=== PATIENT | male | born 1970 | race African-American/Black ===

== ENCOUNTER 2022-01-09 23:30 | Emergency (ER) | payer SELFPAY | END 2022-01-10 01:45 | disposition home or self-care (01) | LOC: EEVIPCON 23:30 → ERS 23:30 | DX: S83.92XA Sprain of unspecified site of left knee, initial encounter (principal); I10 Essential (primary) hypertension; W19.XXXA Unspecified fall, initial encounter ==

== ENCOUNTER 2022-05-13 20:30 | Emergency (ER) | payer BC, SELFPAY ==
[2022-05-13] MEDS ORDERED: Morphine 4 MG/ML VIAL ONE (21:11)
[2022-05-13] MEDS ORDERED: Ketorolac Tromethamine 30 MG/ML VIAL ONE (21:11)
[2022-05-13] MEDS ORDERED: Ondansetron PF 4 MG/2 ML Vial ONE ×2 (21:11→22:37)
[2022-05-13 22:17] LABS: #Basophils 0.1 thou/uL (0.0-0.2); #Eosinphils 0.1 thou/uL (0.0-0.7); #Lymphocytes 1.5 thou/uL (1.20-3.40); #Monocytes 0.7 thou/uL (0.11-0.59); #Neutrophils 7.3 thou/uL (1.40-6.50); %Basophils 0.5 % (0.0-1.0); %Eosinophils 0.6 % (0.0-10.0); %Lymphocytes 15.3 % (21.0-51.0); %Monocytes 7.6 % (0.0-10.0); Hemoglobin 15.9 g/dL (14.0-18.0); Mean Corpuscular HGB CONC 32.8 g/dL (32.0-36.0); Mean Corpuscular Hemoglobin 30.4 pg (27.0-31.0); Mean Corpuscular Volume 92.6 fL (78.0-98.0); Mean Platelet Volume 9.1 fL (7.4-10.4); Platelet Count 216 thou/uL (130-400); RBC Distribution Width 11.5 % (11.5-14.5); Red Blood Cell (RBC) Count 5.24 mill/uL (4.70-6.10); White Blood Cell (WBC) Count 9.7 thou/uL (4.8-10.8)
[2022-05-13 22:40] LABS: ALT (SGPT) 20 U/L (8-55); AST (SGOT) 21 U/L (5-34); Albumin 4.4 g/dL (3.5-5.0); Alkaline Phosphatase 129 U/L (40-110); Anion Gap 16 mmol/L (10-20); BUN (Urea Nitrogen) 11 mg/dL (8.4-25.7); Calc. Creatinine Clearance 0 mL/min (70-130); Calcium 9.8 mg/dL (7.8-10.44); Carbon Dioxide 21 mmol/L (22-29); Chloride 104 mmol/L (98-107); Estimated GFR 80; Glucose 111 mg/dL (70-105); Magnesium 1.9 mg/dL (1.6-2.6); Potassium 4.1 mmol/L (3.5-5.1); Protein, Total 8.4 g/dL (6.0-8.3); Sodium 137 mmol/L (136-145)
[2022-05-13] MEDS ORDERED: Piperacillin/Tazobactam 4.5 GM in Sodium Chloride 0.9% 100 ML IVPB SCH (23:15)
[2022-05-13] MEDS ORDERED: Amoxicillin/Potassium Clav 875 MG TAB ONE (23:47)
== END 2022-05-14 00:02 | disposition home or self-care (01) ==
LOC: ERS 20:30
DX: K57.32 Diverticulitis of large intestine without perforation or abscess without bleeding (principal)
CPT/HCPCS: 74176; 80053; 83735; 85025; 96361; 96374; 96375; J1885; J2270; J2405; J2543; J3490

== ENCOUNTER 2022-07-10 17:45 | Emergency (ER) | payer BC | END 2022-07-10 18:33 | disposition home or self-care (01) | LOC: ERS 17:45 | DX: K57.92 Diverticulitis of intestine, part unspecified, without perforation or abscess without bleeding (principal); I10 Essential (primary) hypertension; Z79.899 Other long term (current) drug therapy | CPT/HCPCS: 99283 ==

== ENCOUNTER 2022-10-11 06:43 | Emergency (ER) | payer BC ==
[2022-10-11 07:24] LABS: Hemoglobin 15.5 g/dL (14.0-18.0); Mean Corpuscular HGB CONC 31.6 g/dL (32.0-36.0); Mean Corpuscular Hemoglobin 29.8 pg (27.0-31.0); Mean Corpuscular Volume 94.3 fl (78.0-98.0); Mean Platelet Volume 8.9 fL (7.4-10.4); Platelet Count 212 10x3/uL (130-400); RBC Distribution Width 11.6 % (11.5-14.5); Red Blood Cell (RBC) Count 5.19 mill/uL (4.70-6.10); White Blood Cell (WBC) Count 4.5 10x3/uL (4.8-10.8)
[2022-10-11 07:44] LABS: ALT (SGPT) 21 U/L (8-55); AST (SGOT) 19 U/L (5-34); Albumin 4.4 g/dL (3.5-5.0); Alkaline Phosphatase 112 U/L (40-110); Anion Gap 12 mmol/L (10-20); BUN (Urea Nitrogen) 12 mg/dL (8.4-25.7); Calc. Creatinine Clearance 0 mL/min (70-130); Calcium 9.2 mg/dL (7.8-10.44); Carbon Dioxide 26 mmol/L (22-29); Chloride 102 mmol/L (98-107); Estimated GFR 64; Globulin 3.5 g/dL (2.4-3.5); Glucose 236 mg/dL (70-105); Potassium 3.6 mmol/L (3.5-5.1); Protein, Total 7.9 g/dL (6.0-8.3); Sodium 136 mmol/L (136-145)
[2022-10-11 08:05] LABS: Band 6 % (5-11); Eosinophils 2 % (0-10); Lymphocytes 23 % (21-51); MDiff Complete? YES; Monocytes 2 % (0-10); Neutrophil 66 % (42-75); Platelet Morphology Comment Appears Adequate; RBC Morphology Normal; Reactive Lymphocytes 1 % (0-10)
[2022-10-11 09:05] LABS: Bilirubin Negative (Negative); Blood, Urine Negative (Negative); Clarity Clear (Clear); Glucose, Urine (Dipstick) Normal (Negative); Ketone, Urine Negative (Negative); Leukocyte Negative Leu/uL (Negative); Nitrite Negative (Negative); Protein, Urine (Dipstick) 10 mg/dL (Neg-Trace); Specific Gravity, Urine 1.026 (1.002-1.036); Urobilinogen 3 mg/dL (Less than 2)
== END 2022-10-11 11:51 | disposition home or self-care (01) ==
LOC: ERS 06:43
DX: R10.814 Left lower quadrant abdominal tenderness (principal); R73.9 Hyperglycemia, unspecified; I10 Essential (primary) hypertension
CPT/HCPCS: 36415; 74176; 80053; 81003; 85025

== ENCOUNTER 2023-07-12 07:08 | Emergency (ER) | payer BC | END 2023-07-12 07:57 | disposition home or self-care (01) | LOC: ERS 07:08 | DX: S46.012A Strain of muscle(s) and tendon(s) of the rotator cuff of left shoulder, initial encounter (principal); S16.1XXA Strain of muscle, fascia and tendon at neck level, initial encounter; I10 Essential (primary) hypertension | CPT/HCPCS: 99283 ==

== ENCOUNTER 2023-08-19 15:43 | Emergency (ER) | payer BC ==
[2023-08-19 16:36] LABS: %Lymphocytes 22.8 % (21.0-51.0); %Neutrophils 64.3 % (42.0-75.0); Hematocrit 44.7 % (42.0-52.0); Hemoglobin 14.6 g/dL (14.0-18.0); Mean Corpuscular HGB CONC 32.7 g/dL (32.0-36.0); Mean Corpuscular Hemoglobin 29.7 pg (27.0-31.0); Mean Platelet Volume 10.7 fL (7.4-10.4); Platelet Count 257 10x3/uL (130-400); Red Blood Cell (RBC) Count 4.91 mill/uL (4.70-6.10); White Blood Cell (WBC) Count 7.2 10x3/uL (4.8-10.8)
[2023-08-19 16:37] LABS: #Basophils 0.1 thou/uL (0.0-0.2); #Eosinphils 0.1 thou/uL (0.0-0.7); #Monocytes 0.7 thou/uL (0.11-0.59); #Neutrophils 4.6 thou/uL (1.40-6.50); %Basophils 1.7 % (0.0-1.0); %Eosinophils 1.3 % (0.0-10.0); %Monocytes 9.6 % (0.0-10.0)
[2023-08-19 17:03] LABS: ALT (SGPT) 22 U/L (8-55); AST (SGOT) 16 U/L (5-34); Albumin 4.8 g/dL (3.5-5.0); Alkaline Phosphatase 116 U/L (40-110); Anion Gap 11 mmol/L (10-20); BUN (Urea Nitrogen) 14 mg/dL (8.4-25.7); Bilirubin, Total 0.5 mg/dL (0.2-1.2); Calc. Creatinine Clearance 0 mL/min (70-130); Calcium 9.6 mg/dL (7.8-10.44); Carbon Dioxide 29 mmol/L (22-29); Chloride 104 mmol/L (98-107); Estimated GFR 73; Globulin 3.2 g/dL (2.4-3.5); Glucose 129 mg/dL (70-105); Potassium 3.6 mmol/L (3.5-5.1); Sodium 140 mmol/L (136-145)
[2023-08-19 17:07] LABS: Troponin I 0.022 ng/mL (< 0.028)
[2023-08-19 18:41] LABS: Bacteria/HPF None Seen HPF (None Seen); CAUTI Indications for Culture Pelvic or flank pain; RBC/HPF 0-3 HPF (0-3); Squamous Epithelial None Seen HPF (0-3); WBC/HPF 0-3 HPF (0-3)
[2023-08-19 18:45] LABS: Bilirubin Negative (Negative); Blood, Urine Negative (Negative); Glucose, Urine (Dipstick) Negative (Negative); Ketone, Urine Negative (Negative); Leukocyte Negative (Negative); Nitrite Negative (Negative); Protein, Urine (Dipstick) Trace mg/dL (Neg-Trace); Urobilinogen 0.2 mg/dL (Less than 2); pH, Urine 5.5 (5.0-9.0)
[2023-08-19 18:46] LABS: Clarity Clear (Clear)
[2023-08-19 18:47] LABS: Specific Gravity, Urine 1.025 (1.002-1.036)
[2023-08-19 18:48] LABS: Urine Culture Reflex No No
== END 2023-08-19 18:57 | disposition home or self-care (01) ==
LOC: ERS 15:43
DX: M25.512 Pain in left shoulder (principal); I10 Essential (primary) hypertension
CPT/HCPCS: 36415; 71045; 80053; 81001; 84484; 85025; 93005

== ENCOUNTER 2023-09-19 19:43 | Emergency (ER) | payer BC ==
[2023-09-19 20:15] LABS: #Basophils 0.1 thou/uL (0.0-0.2); #Eosinphils 0.2 thou/uL (0.0-0.7); #Monocytes 0.7 thou/uL (0.11-0.59); #Neutrophils 3.3 thou/uL (1.40-6.50); %Basophils 1.7 % (0.0-1.0); %Lymphocytes 26.8 % (21.0-51.0); %Monocytes 11.5 % (0.0-10.0); %Neutrophils 56.8 % (42.0-75.0); Hematocrit 41.8 % (42.0-52.0); Hemoglobin 13.7 g/dL (14.0-18.0); Mean Corpuscular HGB CONC 32.8 g/dL (32.0-36.0); Mean Corpuscular Volume 91.7 fl (78.0-98.0); Mean Platelet Volume 10.8 fL (7.4-10.4); Platelet Count 264 10x3/uL (130-400); RBC Distribution Width 12.1 % (11.5-14.5); Red Blood Cell (RBC) Count 4.56 mill/uL (4.70-6.10); White Blood Cell (WBC) Count 5.7 10x3/uL (4.8-10.8)
[2023-09-19] MEDS ORDERED: Orphenadrine Citrate 60 MG/2 ML VIAL ONE (20:23)
[2023-09-19 20:43] LABS: Troponin I 0.011 ng/mL (< 0.028)
[2023-09-19 20:47] LABS: ALT (SGPT) 18 U/L (8-55); AST (SGOT) 15 U/L (5-34); Albumin 4.7 g/dL (3.5-5.0); Alkaline Phosphatase 114 U/L (40-110); Anion Gap 12 mmol/L (10-20); BUN (Urea Nitrogen) 12 mg/dL (8.4-25.7); Bilirubin, Total 0.7 mg/dL (0.2-1.2); Calc. Creatinine Clearance 0 mL/min (70-130); Calcium 9.4 mg/dL (7.8-10.44); Carbon Dioxide 27 mmol/L (22-29); Chloride 104 mmol/L (98-107); Estimated GFR 84; Globulin 2.6 g/dL (2.4-3.5); Glucose 136 mg/dL (70-105); Lipase 40 U/L (8-78); Potassium 3.8 mmol/L (3.5-5.1); Protein, Total 7.3 g/dL (6.0-8.3); Sodium 139 mmol/L (136-145)
== END 2023-09-19 23:39 | disposition home or self-care (01) ==
LOC: ERS 19:43
DX: M25.512 Pain in left shoulder (principal); G89.29 Other chronic pain; R07.9 Chest pain, unspecified; I10 Essential (primary) hypertension
CPT/HCPCS: 36415; 71045; 80053; 83690; 84484; 85025; 93005; 94760; 96372; J2360

== ENCOUNTER 2023-10-18 13:16 | Emergency (ER) | payer BC ==
[2023-10-18] MEDS ORDERED: Ketorolac Tromethamine 30 MG/ML VIAL ONE (15:10)
[2023-10-18 16:02] LABS: #Basophils 0.1 thou/uL (0.0-0.2); #Eosinphils 0.1 thou/uL (0.0-0.7); #Monocytes 0.7 thou/uL (0.11-0.59); #Neutrophils 3.2 thou/uL (1.40-6.50); %Basophils 1.7 % (0.0-1.0); %Eosinophils 2.1 % (0.0-10.0); %Lymphocytes 22.4 % (21.0-51.0); %Neutrophils 60.6 % (42.0-75.0); Hemoglobin 14.6 g/dL (14.0-18.0); Mean Corpuscular HGB CONC 33.2 g/dL (32.0-36.0); Mean Corpuscular Hemoglobin 29.7 pg (27.0-31.0); Mean Corpuscular Volume 89.6 fl (78.0-98.0); Mean Platelet Volume 11.1 fL (7.4-10.4); Platelet Count 244 10x3/uL (130-400); RBC Distribution Width 11.6 % (11.5-14.5); Red Blood Cell (RBC) Count 4.91 mill/uL (4.70-6.10); White Blood Cell (WBC) Count 5.2 10x3/uL (4.8-10.8)
[2023-10-18 16:19] LABS: CRP (Inflammatory) 1.64 mg/dL (= or < 0.5); Uric Acid 6.3 mg/dL (3.5-7.2)
== END 2023-10-18 17:35 | disposition home or self-care (01) ==
LOC: ERS 13:16
DX: S96.912A Strain of unspecified muscle and tendon at ankle and foot level, left foot, initial encounter (principal); I10 Essential (primary) hypertension; X50.0XXA Overexertion from strenuous movement or load, initial encounter; Y93.H2 Activity, gardening and landscaping; Z79.899 Other long term (current) drug therapy
CPT/HCPCS: 36415; 84550; 85025; 86140; 96372; J1885

== ENCOUNTER 2023-11-22 19:32 | Emergency (ER) | payer BC ==
[2023-11-22 20:38] LABS: #Basophils 0.1 thou/uL (0.0-0.2); #Eosinphils 0.1 thou/uL (0.0-0.7); #Monocytes 0.5 thou/uL (0.11-0.59); #Neutrophils 3.8 thou/uL (1.40-6.50); %Basophils 2.1 % (0.0-1.0); %Eosinophils 1.7 % (0.0-10.0); %Lymphocytes 23.1 % (21.0-51.0); %Monocytes 8.7 % (0.0-10.0); %Neutrophils 64.2 % (42.0-75.0); Hematocrit 44.9 % (42.0-52.0); Hemoglobin 15.2 g/dL (14.0-18.0); Mean Corpuscular HGB CONC 33.9 g/dL (32.0-36.0); Mean Corpuscular Hemoglobin 29.6 pg (27.0-31.0); Mean Corpuscular Volume 87.4 fl (78.0-98.0); Mean Platelet Volume 12.5 fL (7.4-10.4); Platelet Count 237 10x3/uL (130-400); RBC Distribution Width 11.4 % (11.5-14.5); Red Blood Cell (RBC) Count 5.14 mill/uL (4.70-6.10); White Blood Cell (WBC) Count 5.9 10x3/uL (4.8-10.8)
[2023-11-22 21:03] LABS: ALT (SGPT) 26 U/L (8-55); AST (SGOT) 16 U/L (5-34); Albumin 4.4 g/dL (3.5-5.0); Alkaline Phosphatase 140 U/L (40-110); Anion Gap 15 mmol/L (10-20); BUN (Urea Nitrogen) 17 mg/dL (8.4-25.7); Bilirubin, Total 0.8 mg/dL (0.2-1.2); Calc. Creatinine Clearance 0 mL/min (70-130); Calcium 9.4 mg/dL (7.8-10.44); Carbon Dioxide 23 mmol/L (22-29); Chloride 92 mmol/L (98-107); Estimated GFR 44; Globulin 3.4 g/dL (2.4-3.5); Lipase 59 U/L (8-78); Potassium 4.6 mmol/L (3.5-5.1); Protein, Total 7.8 g/dL (6.0-8.3); Sodium 125 mmol/L (136-145)
[2023-11-22 21:06] LABS: Critical Call Chemistry NUR.CJM1 @2105; Glucose 758 mg/dL (70-105)
[2023-11-22 21:09] LABS: Bacteria/HPF None Seen HPF (None Seen); Bilirubin Negative (Negative); Blood, Urine Negative (Negative); CAUTI Indications for Culture Alt mental st,lethar; Clarity Clear (Clear); Glucose, Urine (Dipstick) Greater than 1000 mg/dL (Negative); Ketone, Urine 10 mg/dL (Negative); Leukocyte Negative Leu/uL (Negative); Nitrite Negative (Negative); Protein, Urine (Dipstick) Negative (Neg-Trace); RBC/HPF None Seen HPF (0-3); Specific Gravity, Urine 1.035 (1.002-1.036); Squamous Epithelial 0-3 HPF (0-3); Urobilinogen Normal mg/dL (Less than 2); WBC/HPF 0-3 HPF (0-3)
[2023-11-22 21:10] LABS: Urine Culture Reflex No No
[2023-11-22] MEDS ORDERED: Insulin Regular 300 UNITS/3 ML VIAL ONE (21:10)
== END 2023-11-23 00:20 | disposition home or self-care (01) ==
LOC: ERS 19:32
DX: E11.65 Type 2 diabetes mellitus with hyperglycemia (principal); I10 Essential (primary) hypertension
CPT/HCPCS: 36415; 36416; 71045; 80053; 81001; 82010; 83690; 83735; 85025; 93005; 96361; 96374; J1815

== ENCOUNTER → 2025-06-13 | Emergency (ER) | payer BC ==
[~2025-06-13] MED LIST: Ketorolac Tromethamine 30 MG (1 mL) VIAL ONE
== END ==
LOC: ERS 01:40
DX: M79.672 Pain in left foot (principal); I10 Essential (primary) hypertension; E11.9 Type 2 diabetes mellitus without complications; Z79.899 Other long term (current) drug therapy
CPT/HCPCS: 96372; 99283; J1885; J2270